=== PATIENT | male | born 1985 | race African-American/Black ===

== ENCOUNTER 2017-03-26 19:07 | Emergency (ER) | payer SELFPAY ==
[~2017-03-26] VITALS: Ht 177.8 cm; Wt 83.9 kg
--- NOTE | 2017-03-26 19:20 | NUR ---
PT CAME FROM HOME W/ CO ATTEMPT SUICIDE THIS MORNING BY TAKING ABOUT 15 TYLENOL @ 11AM. + NAUSEA, STATED THAT HE VOMITTED X8 PRIOR TO COMING TO ED. NO SI NO HI AT THIS TIME.
--- NOTE | 2017-03-26 19:25 | NUR ---
DR MOJICA AT BEDSIDE FOR EVAL
[2017-03-26] MEDS ORDERED: IV NS 0.9% 500 ML BAG IV ONE (19:30)
[2017-03-26] MEDS ORDERED: ONDANSETRON HCL/PF 4 MG/2 ML VIAL IVP ONE (19:30)
[2017-03-26] MEDS ORDERED: ONDANSETRON HCL/PF 4 MG/2 ML VIAL ONE (19:41)
[2017-03-26] MEDS ORDERED: IV NS 0.9% 500 ML IV ONE (19:41)
[2017-03-26] MEDS ORDERED: IV SET PRIMARY 1 EA INFUS.SET MC ONE (19:41)
[2017-03-26 19:45] LABS: BASOPHILS # (AUTO) 0.2 /CMM (0.0-0.2); EOSINOPHILS % (AUTO) 0.2 % (0.0-6.0); HEMATOCRIT 45 % (39-51); HEMOGLOBIN 15.4 g/dL (13.5-17.5); LYMPHOCYTES # (AUTO) 1.8 /CMM (0.8-4.8); LYMPHOCYTES % (AUTO) 17.7 % (20.0-44.0); MEAN CORPUSCULAR HEMOGLOBIN 31 PG (26.0-33.0); MEAN CORPUSCULAR HGB CONC 34 g/dl (31.0-36.0); MEAN CORPUSCULAR VOLUME 90 fL (80-96); MONOCYTES # (AUTO) 0.4 /CMM (0.1-1.30); MONOCYTES % (AUTO) 4.2 % (2.0-12.0); NEUTROPHILS % (AUTO) 75.9 % (43.0-81.0); PLATELET COUNT (AUTO) 259 /CMM (150-450); RDW COEFFICIENT OF VARIATION 12.6 (11.5-15.0); RED BLOOD CELL COUNT(AUTO) 5.04 MIL/uL (4.5-6.0); WHITE BLOOD COUNT (AUTO) 10.4 K/uL (4.3-11.0)
[2017-03-26 19:52] LABS: CALCIUM, SERUM 8.7 mg/dL (8.5-10.1); CARBON DIOXIDE 29 mmol/L (21-32); CHLORIDE 101 mmol/L (98-107); CREATININE 1.3 mg/dL (0.6-1.3); GFR 64 mL/min (>60); GLUCOSE 100 mg/dL (74-106); POTASSIUM 3.6 mmol/L (3.5-5.1); SODIUM SERUM 138 mmol/L (136-145); UREA NITROGEN, BLOOD 10 mg/dL (7-18)
[2017-03-26 19:52] LABS: CANNABINOID, URINE NEGATIVE (NEGATIVE); PHENCYCLIDINE SCREEN,URINE NEGATIVE (NEGATIVE)
[2017-03-26 19:55] LABS: INR 1.06 (0.87-1.13)
[2017-03-26 19:59] LABS: TROPONIN I < 0.017 ng/mL (0.00-0.056)
[2017-03-26 20:04] LABS: ACETAMINOPHEN 31 ug/ml (10-30); ALANINE AMINOTRANSFERASE 22 U/L (12-78); ALBUMIN 4.3 g/dL (3.4-5.0); ALCOHOL, BLOOD < 3 mg/dL (0-0); ALKALINE PHOSPHATASE 78 U/L (46-116); ASPARTATE AMINOTRANSFERASE 18 U/L (15-37); BILIRUBIN,DIRECT 0.1 mg/dL (0.0-0.2); BILIRUBIN,TOTAL 0.6 mg/dL (0.2-1.0); TOTAL PROTEIN, SERUM 8.3 g/dL (6.4-8.2)
[2017-03-26 20:05] LABS: SALICYLATE 1.9 mg/dL (2.8-20.0)
[2017-03-26 20:09] LABS: THYROID STIMULATING HORMONE 0.672 uIU/mL (0.358-3.74)
--- NOTE | 2017-03-26 21:09 | NUR ---
RA, PSYCH CRIMINOLOGY PROFESSOR AT BEDSIDE.
--- NOTE | 2017-03-26 21:57 | NUR ---
Patient sitting up in bed w/ resp even & unlabored, denies any pain, no sob, VSS w/ nad noted. IV removed. Catheter intact and site benign. Pressure and 4x4 applied to site. No bleeding noted.Patient discharged to home in stable condition. Written and verbal after care instructions given. Patient and mother verbalizes understanding of instruction.
[2017-03-26 21:58] VITALS: BP 109/53
== END 2017-03-26 21:58 | disposition home or self-care (01) ==
LOC: ER 19:09
DX: T43.621A Poisoning by amphetamines, accidental (unintentional), initial encounter (principal); F17.210 Nicotine dependence, cigarettes, uncomplicated; Y92.89 Other specified places as the place of occurrence of the external cause
CPT/HCPCS: 36415; 80048-TC; 80076-TC; 80305; 84443-TC; 84484-TC; 85025-TC; 85730-TC; A4606; G0480; G6039-TC; J2405; J7040; Z7610